=== PATIENT | male | born 1985 | race African-American/Black ===

== ENCOUNTER 2020-07-17 09:25 | Emergency (ER) | payer OTHER ==
[~2020-07-17] VITALS: Ht 177.8 cm; Wt 104.5 kg
[2020-07-17 09:26] VITALS: BP 153/93
[2020-07-17] MEDS ORDERED: ATOR10TA84 PO (09:29)
== END 2020-07-17 10:00 | disposition left against medical advice (07) ==
LOC: EMS 09:27
DX: R51 Headache (principal); Z53.21 Procedure and treatment not carried out due to patient leaving prior to being seen by health care provider